=== PATIENT | male | born 1970 | race Hispanic/Latino ===

== ENCOUNTER 2021-05-20 10:02 | Emergency (ER) | payer SELFPAY ==
[~2021-05-20] VITALS: Ht 165.1 cm; Wt 77.2 kg
[2021-05-20] MEDS ORDERED: BENADRYL25 M1 PO (11:01)
[2021-05-20 11:34] VITALS: BP 154/85
== END 2021-05-20 11:34 | disposition home or self-care (01) | DRG 607 ==
LOC: ED 10:02
DX: L23.7 Allergic contact dermatitis due to plants, except food (principal)

== ENCOUNTER 2022-02-08 13:25 | Emergency (ER) | payer SELFPAY ==
[2022-02-08] VITALS (10 sets, daily range): BP systolic 118–132; BP diastolic 73–88
[~2022-02-08] VITALS: Ht 165.1 cm; Wt 90.1 kg
[~2022-02-08 13:25] MED LIST: BENADRYL25 M1 PO
[2022-02-08] MEDS ORDERED: PREDNISONE20 MG PO ×2 (15:20→15:58)
[2022-02-08] MEDS ORDERED: KEFLEX500 MG PO ×2 (15:20→15:58)
== END 2022-02-08 16:29 | disposition home or self-care (01) | DRG 554 ==
LOC: ED 13:25
DX: M10.9 Gout, unspecified (principal); M79.644 Pain in right finger(s)